=== PATIENT | female | born 1980 | race Caucasian/White ===

== ENCOUNTER 2021-12-31 22:27 | Emergency (ER) | payer OTHER ==
[2022-01-01] MEDS ORDERED: OMNICEF 300 MG300 MG PO (01:12)
== END 2022-01-01 01:17 | disposition home or self-care (01) ==
LOC: ER1 22:27
DX: S31.119A Laceration without foreign body of abdominal wall, unspecified quadrant without penetration into peritoneal cavity, initial encounter (principal); W26.0XXA Contact with knife, initial encounter
CPT/HCPCS: 96374; 96375; 99283; J2270; J2405; Q9967